=== PATIENT | female | born 1965 | race Two or more races ===

== ENCOUNTER 2022-10-13 23:27 | Emergency (ER) | payer MEDICARE, MEDICAID ==
[~2022-10-13] VITALS: Ht 160 cm; Wt 82.0 kg
[2022-10-13 23:32] VITALS: BP 142/86
[2022-10-14 00:30] LABS: BASOPHILS % 0.4 % (0.0-2.0); HEMATOCRIT. 44.5 % (36.0-48.0); HEMOGLOBIN. 15.2 g/dL (12.0-16.0); LYMPHOCYTES % 20.7 % (20.0-50.0); MEAN CORPUSCULAR HEMOGLOBIN 30.1 pg (28.0-32.0); MEAN CORPUSCULAR VOLUME 88.2 fL (81.0-99.0); MEAN PLATELET VOLUME 8.5 fl (7.4-10.4); MONOCYTES % 9.8 % (2.0-8.0); NEUTROPHILS % 66.1 % (40.0-76.0); PLATELET 160 x1000/uL (130-400); RED BLOOD CELL COUNT 5.05 mill/uL (4.2-5.4); RED CELL DISTRIBUTION WIDTH 13.4 % (11.6-14.6)
[2022-10-14 00:35] LABS: CHLORIDE 111 mEq/L (98-107)
[2022-10-14 00:44] LABS: ETHANOL BLOOD < 10 mg/dL (-10)
[2022-10-14] MEDS ORDERED: POTASSIUM CHLORIDE 20MEQ/PACKET PO ONE (02:15)
[2022-10-14] MEDS ORDERED: HYDROXYZINE 25MG TABLET PO ONE (02:15)
[2022-10-14 02:24] LABS: CLARITY URINE TURBID (CLEAR); COLOR URINE YELLOW (YELLOW); KETONES URINE NEGATIVE (NEGATIVE); LEUKOCYTE ESTERASE URINE 3+ (NEGATIVE); NITRITE URINE POSITIVE (NEGATIVE); OCCULT BLOOD URINE NEGATIVE (NEGATIVE); PROTEIN URINE NEGATIVE (NEGATIVE); SPECIFIC GRAVITY URINE 1.013 (1.005-1.030)
[2022-10-14 02:42] LABS: *AMPHETAMINES SCREEN URINE NEGATIVE (NEGATIVE); *BARBITURATES SCREEN URINE NEGATIVE (NEGATIVE); *BENZODIAZEPINES SCREEN URINE NEGATIVE (NEGATIVE); *COCAINE SCREEN URINE NEGATIVE (NEGATIVE); CANNABINOID URINE SCREEN NEGATIVE (NEGATIVE); METHADONE URINE SCREEN NEGATIVE (NEGATIVE); OPIATES URINE SCREEN NEGATIVE (NEGATIVE); PHENCYCLIDINE URINE SCREEN NEGATIVE (NEGATIVE)
[2022-10-14] MEDS ORDERED: SULF1TAB48 MT (04:35)
== END 2022-10-14 04:50 | disposition home or self-care (01) ==
LOC: ER 23:27
DX: E87.6 Hypokalemia (principal); N39.0 Urinary tract infection, site not specified; Z00.00 Encounter for general adult medical examination without abnormal findings
CPT/HCPCS: 36415; 80053; 80305; 80320; 81003; 85025; 99283; G0480